=== PATIENT | male | born 1995 | race African-American/Black ===

== ENCOUNTER 2017-08-28 09:55 | Emergency (ER) | payer SELFPAY ==
[~2017-08-28] VITALS: Ht 188 cm; Wt 90.0 kg
[~2017-08-28 09:55] MED LIST: IBUP800T23 PO; LORTA5 PO; Z.0.NO CURRENT MEDS
[2017-08-28 09:56] VITALS: BP 151/91; PULSE 88; RESP 18; TEMP 100.7; O2SAT 99
[2017-08-28] MEDS ORDERED: ZOFR4TAB PO (10:52)
--- NOTE | 2017-08-28 10:52 | PD ---
HPI Chief Complaint: GI Complaint Time Seen by Provider: 10:29 Travel History International Travel<30 days: No Contact w/Intl Traveler<30days: No Traveled to known affect area: No History of Present Illness HPI Patient is a 22-year-old male presents emergency department with diarrhea onset yesterday, patient states is also been having some cough and congestion, no body aches no fevers, no blood in the stool no emesis, no other close sick contacts. No abdominal pain only a mild cramping right before he has a bowel movement. No history of Crohn's disease or ulcerative colitis in himself or his family. Symptoms are mild, associated signs and symptoms as above, waxing and waning, duration is a above PFSH Past Medical History Medical History: Denies Significant Hx Past Surgical History Surgical History: No Previous Surgery Social History Alcohol Use: No Tobacco Use: Yes Substance Use: Yes (THC) Allergies-Medications (Allergen,Severity, Reaction): Coded Allergies: No Known Allergies (Unverified Adverse Reaction, Unknown, 08/28/17) Reported Meds & Prescriptions Reported Meds & Active Scripts Active Zofran (Ondansetron HCl) 4 Mg Tab 4 Mg PO Q6HR PRN Review of Systems Except as stated in HPI: all other systems reviewed are Neg Physical Exam Narrative GENERAL: Well-nourished, well-developed patient. In no obvious distress. SKIN: Focused skin assessment warm/dry. HEAD: Normocephalic. EYES: No scleral icterus. No injection or drainage. ENT: TMs clear bilaterally, oropharynx clear moist. NECK: Supple, trachea midline. No JVD or lymphadenopathy. CARDIOVASCULAR: Regular rate and rhythm without murmurs, gallops, or rubs. RESPIRATORY: Breath sounds equal bilaterally. No accessory muscle use. GASTROINTESTINAL: Abdomen soft, non-tender, nondistended. No rebound no percussive tenderness, MUSCULOSKELETAL: No cyanosis, or edema. BACK: Nontender without obvious deformity. No CVA tenderness. Data Data Last Documented VS Vital Signs Date Time Temp Pulse Resp B/P (MAP) Pulse Ox O2 Delivery O2 Flow Rate FiO2 08/28/17 11:13 08/28/17 09:56 100.7 88 18 99 Room Air Orders Orders Ed Discharge Order (08/28/17 10:53) MDM Medical Decision Making Medical Screen Exam Complete: Yes Emergency Medical Condition: Yes Differential Diagnosis Diarrheal illness, significant dehydration highly unlikely, clinically significant electrolyte abnormality highly unlikely. Narrative Course 22-year-old male room to the emergency department, appears well-hydrated in no obvious distress, benign abdomen history of diarrhea for 2 days. Likely a viral enteritis or colitis. No indication for further workup at this time as he appears well. He is reassured and he is grateful for that. Discussed return to the criterion symptomatic management at home. H he is stable for discharge Diagnosis Primary Impression: Diarrhea Qualified Codes: R19.7 - Diarrhea, unspecified Additional Instructions: Drink plenty of fluids and wash hands a lot to prevent spread of diarrhea. Med/Other Pt SpecificInfo: Prescription(s) given Scripts Ondansetron (Zofran) 4 Mg Tab 4 MG PO Q6HR Y for NAUSEA OR VOMITING, #20 TAB 0 Refills Prov: Melvin Rodas MD 08/28/17 Disposition: 01 DISCHARGE HOME Condition: Stable Melvin Rdoas MD Aug 28, 2017 10:52
== END 2017-08-28 11:09 | disposition home or self-care (01) ==
LOC: NEPD 09:55
DX: R19.7 Diarrhea, unspecified (principal); R05 Cough; Z72.0 Tobacco use
CPT/HCPCS: 99283